=== PATIENT | female | born 1990 | race Caucasian/White ===

== ENCOUNTER 2016-10-25 11:20 | Emergency (ER) | payer OTHER ==
[2016-10-25 12:02] VITALS: BP 129/89
== END 2016-10-25 13:36 | disposition home or self-care (01) ==
LOC: ED 11:20
DX: A08.4 Viral intestinal infection, unspecified (principal)

== ENCOUNTER 2017-01-26 19:27 | Emergency (ER) | payer MEDICAID ==
[2017-01-26 22:20] VITALS: BP 134/84
== END 2017-01-26 22:20 | disposition home or self-care (01) ==
LOC: ED 19:27
DX: R21 Rash and other nonspecific skin eruption (principal)
CPT/HCPCS: J7512; Q0163

== ENCOUNTER 2017-12-04 12:26 | Emergency (ER) | payer MEDICAID ==
[~2017-12-04] VITALS: Ht 160 cm; Wt 86.6 kg
[2017-12-04 12:36] VITALS: Ht 160 cm; Wt 86.6 kg
[2017-12-04 14:52] VITALS: BP 116/73
== END 2017-12-04 14:52 | disposition home or self-care (01) ==
LOC: ED 12:26
DX: G89.29 Other chronic pain (principal); M54.5 Low back pain; Z98.890 Other specified postprocedural states

== ENCOUNTER 2018-04-10 10:53 | Emergency (ER) | payer SELFPAY ==
[~2018-04-10] VITALS: Ht 160 cm; Wt 90.7 kg
[2018-04-10 11:26] VITALS: Ht 160 cm; Wt 90.7 kg
[2018-04-10 12:08] LABS: UA SPECIFIC GRAVITY 1.025 (1.005-1.035); microscopic required? YES; urine erythrocyte 2+ (NEGATIVE)
[2018-04-10 12:10] LABS: BASOPHIL % 0.5 % (0-2); PLATELET COUNT 313 x10^3mcL (130-400)
[2018-04-10 12:15] LABS: RED CELL DISTRIBUTION WIDTH 15.7 % (11.5-14.5)
[2018-04-10 12:23] LABS: CALCIUM 8.6 mg/dL (8.5-10.1); CARBON DIOXIDE 28.2 mmol/L (21-32); CHLORIDE SERUM 105 mmol/L (98-107); CREATININE SERUM 0.5 mg/dL (0.6-1.0); GFR1 > 60 mL/min; GLUCOSE SERUM 79 mg/dL (74-106); POTASSIUM SERUM 3.8 mmol/L (3.5-5.1); SODIUM SERUM 140 mmol/L (136-145)
[2018-04-10 12:29] LABS: ALKALINE PHOSPHATASE 68 U/L (46-116); ALT/SGPT 21 U/L (14-59); AST/SGOT 12 U/L (15-37); BILIRUBIN TOTAL 0.2 mg/dL (0.20-1.00)
[2018-04-10 12:30] LABS: ALBUMIN 3.3 g/dL (3.4-5.0)
[2018-04-10 13:41] VITALS: BP 120/71
== END 2018-04-10 14:16 | disposition home or self-care (01) ==
LOC: ED 10:53
PROVIDERS: Emergency Medicine
DX: N83.202 Unspecified ovarian cyst, left side (principal); Z98.890 Other specified postprocedural states
CPT/HCPCS: 36415; 87491; 87591; J1885